=== PATIENT | male | born 1940 | race Asian ===

== ENCOUNTER → 2025-06-05 | Outpatient (REF) | payer MEDICARE, OTHER ==
[~2025-06-05] MED LIST: ALLOPURINOL100 MG PO; AMLODIPINE-BEN1 EAC5 PO; ARICEPT5 MG PO; ASPIRIN81 MG PO; CENTRUM SILVER PO; FISH OIL 1,0001 EAC3 PO; LIVALO4 MG PO; METFORMIN HCL500 MG PO; PANTOPRAZOLE SO40 MG PO
== END ==
LOC: LAB 08:00
PROVIDERS: ATTEND Internal Medicine Gastroenterology
DX: Z01.818 Encounter for other preprocedural examination (principal)
CPT/HCPCS: 36415; 85025; 93005

== ENCOUNTER → 2025-07-11 | Day surgery (SDC) | payer MEDICARE ==
[~2025-07-11] MED LIST changes: +LIDOCAINE HCL 2% LOCAL INJ 5 ML SDV VIAL INJ ONE; +MAGNESIUM100 MG PO; +PROPOFOL IV EMULSION 10 MG/ML 20 ML VIAL ONE
[2025-07-11] MEDS: LACTATED RINGER'S 1,000 ML ONE (10:26)
[2025-07-11 11:16] LABS: BASOPHILS % 0.9 % (0.0-1.0); EOSINOPHILS % 2.4 % (0.0-6.0); LYMPHOCYTES % 36.3 % (18.0-39.1); MONOCYTES % 9.6 % (4.4-11.3); NEUTROPHILS % 50.6 % (38.7-80.0); RED CELL DISTRIBUTION WIDTH 13.5 % (11.7-14.4)
[2025-07-11 11:22] LABS: EST GLOMERULAR FILTRATION RATE 47.0 ML/MIN (>=60)
[2025-07-11 11:54] LABS: INR 0.86
[2025-07-11 12:22] VITALS: TEMP 97.8
[2025-07-11 12:45] VITALS: BP 136/81; PULSE 54; RESP 18; O2SAT 98
== END | disposition home or self-care (01) ==
LOC: OR 10:11
PROVIDERS: ATTEND Internal Medicine Gastroenterology
DX: K29.50 Unspecified chronic gastritis without bleeding (principal); K21.9 Gastro-esophageal reflux disease without esophagitis; K44.9 Diaphragmatic hernia without obstruction or gangrene; I10 Essential (primary) hypertension; E78.5 Hyperlipidemia, unspecified; E11.9 Type 2 diabetes mellitus without complications; Z79.84 Long term (current) use of oral hypoglycemic drugs; K76.0 Fatty (change of) liver, not elsewhere classified; K76.89 Other specified diseases of liver; R79.89 Other specified abnormal findings of blood chemistry; N28.1 Cyst of kidney, acquired; E66.01 Morbid (severe) obesity due to excess calories; Z68.30 Body mass index [BMI] 30.0-30.9, adult; Z79.899 Other long term (current) drug therapy
CPT/HCPCS: 36415; 43239; 80053; 82948; 85025; 85610; 85730; J2003; J2704; J7121